=== PATIENT | male | born 1980 | race Caucasian/White ===

== ENCOUNTER 2022-08-24 15:26 | Emergency (ER) | payer MEDICAID ==
[~2022-08-24] VITALS: Ht 172.7 cm; Wt 86.0 kg
[2022-08-24 16:33] VITALS: BP 177/88
[2022-08-24 17:30] LABS: CLARITY URINE CLEAR (CLEAR); COLOR URINE YELLOW (YELLOW); KETONES URINE NEGATIVE (NEGATIVE); LEUKOCYTE ESTERASE URINE NEGATIVE (NEGATIVE); NITRITE URINE NEGATIVE (NEGATIVE); OCCULT BLOOD URINE 1+ (NEGATIVE); PROTEIN URINE NEGATIVE (NEGATIVE); SPECIFIC GRAVITY URINE 1.015 (1.005-1.030); UROBILINOGEN URINE 0.2 E.U./dL (0.2-1.0)
[2022-08-24] MEDS ORDERED: TAMS-11 MT (19:32)
== END 2022-08-24 20:01 | disposition home or self-care (01) ==
LOC: ER 15:26
DX: R31.9 Hematuria, unspecified (principal); I10 Essential (primary) hypertension
CPT/HCPCS: 81003; 99283